=== PATIENT | female | born 1990 | race African-American/Black ===

== ENCOUNTER 2024-07-21 19:04 | Emergency (ER) | payer OTHER, MEDICARE ==
[2024-07-21] MEDS ORDERED: Acetaminophen 325 MG TAB ONE (19:25)
== END 2024-07-21 20:17 | disposition home or self-care (01) ==
LOC: NAV ERS 19:04
DX: S00.83XA Contusion of other part of head, initial encounter (principal); W22.8XXA Striking against or struck by other objects, initial encounter
CPT/HCPCS: 70450